=== PATIENT | female | born 1985 | race Two or more races ===

== ENCOUNTER 2019-07-22 19:01 | Emergency (ER) | payer OTHER ==
[~2019-07-22] VITALS: Ht 162.6 cm; Wt 57.6 kg
== END 2019-07-22 21:19 | disposition home or self-care (01) ==
LOC: ER 19:01
DX: O26.892 Other specified pregnancy related conditions, second trimester (principal); I47.1 Supraventricular tachycardia; Z34.02 Encounter for supervision of normal first pregnancy, second trimester

== ENCOUNTER 2019-08-12 01:41 | Inpatient (IN) | payer OTHER ==
[~2019-08-12] VITALS: Ht 157.5 cm; Wt 61.7 kg
[2019-08-12] MEDS ORDERED: PRENATAL CAPLE1 EAC1 PO (04:00)
[2019-08-12] MEDS ORDERED: IRON325 MG PO (04:01)
== END 2019-08-14 14:05 | DRG 832 ==
LOC: LDR 01:41 → OB/GYN 01:41
PROVIDERS: ADMIT Obstetrics & Gynecology
PROC: B246ZZZ Ultrasonography of Right and Left Heart (ICD-10-PCS; principal; 2019-08-12)
PROC: 4A1HXCZ Monitoring of Products of Conception, Cardiac Rate, External Approach (ICD-10-PCS; 2019-08-12)
DX: O99.413 Diseases of the circulatory system complicating pregnancy, third trimester (principal); I47.1 Supraventricular tachycardia; O23.33 Infections of other parts of urinary tract in pregnancy, third trimester; I07.1 Rheumatic tricuspid insufficiency; I37.1 Nonrheumatic pulmonary valve insufficiency; B96.29 Other Escherichia coli [E. coli] as the cause of diseases classified elsewhere

== ENCOUNTER 2019-10-13 04:56 | Inpatient (IN) | payer OTHER ==
[~2019-10-13] VITALS: Ht 157.5 cm; Wt 3.2 kg
[~2019-10-13 04:56] MED LIST: IRON325 MG PO; PRENATAL CAPLE1 EAC1 PO
[2019-10-13] MEDS ORDERED: INDERAL LA80 MG PO (05:26)
[2019-10-13] MEDS ORDERED: FOLIC ACID0.8 M1 PO (05:27)
== END 2019-10-15 13:38 | disposition home or self-care (01) | DRG 788 ==
LOC: OB/GYN 04:56 → LDR 04:56 → OB/GYN 07:56
PROVIDERS: ADMIT Obstetrics & Gynecology
PROC: 4A1HXCZ Monitoring of Products of Conception, Cardiac Rate, External Approach (ICD-10-PCS; 2019-10-13)
PROC: 10D00Z1 Extraction of Products of Conception, Low, Open Approach (ICD-10-PCS; principal; 2019-10-13 07:00)
DX: O64.1XX0 Obstructed labor due to breech presentation, not applicable or unspecified (principal); Z3A.38 38 weeks gestation of pregnancy; Z37.0 Single live birth